=== PATIENT | male | born 1935 | race Caucasian/White ===

== ENCOUNTER 2016-09-10 13:11 | Observation (INO) | payer MEDICARE, BC ==
[~2016-09-10] VITALS: Ht 172.7 cm; Wt 96.4 kg
[2016-09-10 14:13] VITALS: BP 125/79; PULSE 76; RESP 18; O2SAT 95
[2016-09-10 14:18] LABS: HEMATOCRIT 53.3 % (39.0-51.0); MEAN CELL VOLUME 86.1 FL (80.0-100.0); MEAN CORPUSCULAR HEMOGLOBIN 28.4 PG (27.0-34.0); RED BLOOD COUNT 6.19 MIL/MM3 (4.50-5.90); WHITE BLOOD COUNT 6.3 TH/MM3 (4.0-11.0)
[2016-09-10 14:19] LABS: AUTOMATED NEUTROPHIL # 4.2 TH/MM3 (1.8-7.7); BASOPHIL # 0.1 TH/MM3 (0-0.2); EOSINOPHIL # 0.2 TH/MM3 (0-0.4); EOSINOPHIL % 3.6 % (0.0-4.0); LYMPH % 19.4 % (9.0-44.0); LYMPHOCYTE # 1.2 TH/MM3 (1.0-4.8); MEAN CORPUSCULAR HGB CONC 32.9 % (32.0-36.0); MONO % 9.5 % (0.0-8.0); NEUT % 66.5 % (16.0-70.0); PLATELET COUNT 98 TH/MM3 (150-450); RED CELL DISTRIBUTION WIDTH 16.9 % (11.6-17.2)
[2016-09-10 14:28] LABS: APTT (PATIENT) 25.6 SEC (24.3-30.1); INTERNATIONAL NORMALIZED RATIO 1.2 RATIO; PROTHROMBIN TIME - PATIENT 13.2 SEC (9.8-11.6)
[2016-09-10 14:30] LABS: BICARBONATE 33.4 MEQ/L (21.0-32.0); POTASSIUM 4.1 MEQ/L (3.5-5.1)
[2016-09-10] MEDS ORDERED: CHLORHEXIDINE GLUCONATE 2 % 1 PACK (2 CLOTHS) TOP SCH (14:30)
[2016-09-10] MEDS ORDERED: VANCOMYCIN 1000 MG/NS 250 ML IV SCH ×2 (14:30)
[2016-09-10] MEDS: NS 1000 ML IV SCH (14:30)
[2016-09-10] MEDS ORDERED: ceFAZolin 2 GM PREMIX 50 ML IV SCH (14:30)
[2016-09-10] MEDS ORDERED: POVIDONE IODINE 5% (ANTISEPSIS KIT) 4 APPLICATIONS EACH NARE SCH (14:30)
[2016-09-10] MEDS ORDERED: GLIP10TA6 PO (14:43)
[2016-09-10] MEDS ORDERED: LOVA40TA PO (14:43)
[2016-09-10] MEDS ORDERED: FURO1TAB62 PO (14:43)
[2016-09-10] MEDS ORDERED: LEVO75TA3 PO (14:43)
[2016-09-10] MEDS ORDERED: ASPI1TAB69 PO (14:43)
[2016-09-10] MEDS ORDERED: LISI2.5T3 PO (14:43)
[2016-09-10] MEDS ORDERED: CARV3.125 PO (14:43)
[2016-09-10] MEDS ORDERED: SITA50 PO (14:43)
[2016-09-10] MEDS ORDERED: INSULIN HUMAN REGULAR 1,000 UNITS/10 ML VIAL SQ PRN (14:45)
[2016-09-10] MEDS: SODIUM CHLORID 0.9% 500 ML IV SCH (14:45)
[2016-09-10] MEDS ORDERED: LORazepam 1 MG TAB SL SCH (14:45)
[2016-09-10] MEDS ORDERED: METOPROLOL TARTRATE 25 MG TAB PO PRN (14:45)
[2016-09-10 14:48] LABS: HEMO FLAGS AUTO DIFF
[2016-09-10 14:49] LABS: PLATELET ESTIMATE SMEAR LOW (NORMAL); PLATELET MORPHOLOGY ENLARGED (NORMAL); SCAN/DIFF AUTO DIFF CONFIRMED
[2016-09-10] MEDS ORDERED: BUME1TAB25 PO (15:23)
[2016-09-10] MEDS ORDERED: PROPOFOL 200 MG/20 ML AMP IV ONE (15:35)
[2016-09-10] MEDS ORDERED: LIDOCAINE HCL 2% 50 ML VIAL ONE (16:07)
[2016-09-10] MEDS ORDERED: VANCOMYCIN 500 MG VIAL ONE (16:07)
[2016-09-10] MEDS ORDERED: SODIUM CHLORIDE 0.9% FLUSH 5 ML FLUSH IVF PRN (18:00)
[2016-09-10] MEDS ORDERED: ATROPINE SULFATE 1 MG/ML VIAL IV PRN (18:00)
[2016-09-10] MEDS ORDERED: ACETAMINOPHEN/CODEINE 300 MG/30 MG TAB PO PRN ×2 (18:00)
[2016-09-10] MEDS ORDERED: LIDOCAINE HCL 1% 50 ML VIAL INFIL PRN (18:00)
[2016-09-10] MEDS ORDERED: TEMAZEPAM 15 MG CAP PO PRN (18:00)
[2016-09-10] MEDS ORDERED: LORazepam 2 MG/ML VIAL IV PRN (18:00)
[2016-09-10] MEDS ORDERED: ONDANSETRON HCL 4 MG/2 ML VIAL IV PRN ×2 (18:00)
[2016-09-10] MEDS ORDERED: METOCLOPRAMIDE HCL 10 MG/2 ML VIAL IV PRN (18:00)
[2016-09-10] MEDS ORDERED: SODIUM CHLOR 0.9% 250 ML INJ 250 ML IV PRN (18:00)
[2016-09-10] MEDS ORDERED: BACITRACIN OINT 0.9 GM PKT TOP ONE (18:00)
[2016-09-10] MEDS ORDERED: MIDAZOLAM HCL 2 MG/2 ML VIAL ONE (18:16)
--- NOTE | 2016-09-10 18:36 | RADRPT ---
EXAM DATE/TIME: 09/10/2016 18:06 [facility] COMPARISON: No previous studies available for comparison. INDICATIONS : Post pacemaker, pneumothorax. MEDICAL HISTORY : None. SURGICAL HISTORY : None. ENCOUNTER: Initial ACUITY: 1 day PAIN SCORE: Non-responsive. LOCATION: Left chest. FINDINGS: A single view of the chest demonstrates right lung density and pleural effusion. Cardiomegaly and pre vious CABG. Left-sided pacemaker/defibrillator with intact 3 intact leads. The cardiomediastinal con tours are unremarkable. Osseous structures are intact. CONCLUSION: Right lung density likely layering effusion and adjacent atelectasis. No pneumothorax on the left sta tus post pacemaker/defibrillator placement. Anshu Palma MD on September 10, 2016 at 18:31 Board Certified Radiologist. This report was verified electronically.
[2016-09-10 19:00] VITALS: BP 105/69; PULSE 69; RESP 20; TEMP 97.4; O2SAT 97
[2016-09-10 20:00] VITALS: PULSE 69
[2016-09-10 21:00] VITALS: PULSE 69
[2016-09-10] MEDS: ceFAZolin 2 GM PREMIX 50 ML IV SCH (21:45)
[2016-09-10] MEDS: SODIUM CHLORIDE 0.9% FLUSH 5 ML FLUSH IVF SCH (21:45)
[2016-09-10] MEDS: CARVEDILOL 3.125 MG TAB PO SCH (21:45)
[2016-09-10 22:00] VITALS: PULSE 69
[2016-09-10 23:00] VITALS: BP 108/59; PULSE 69; RESP 24; TEMP 97.6; O2SAT 96
[2016-09-11] VITALS (26 sets, daily range): BP systolic 98–121; BP diastolic 52–63; PULSE 69–150; RESP 20–36; TEMP 97.2–98.1; O2SAT 90–94
[2016-09-11] MEDS: ceFAZolin 2 GM PREMIX 50 ML IV SCH ×2 (04:31→13:36)
[2016-09-11] MEDS: LEVOTHYROXINE SODIUM 75 MCG TAB PO SCH (06:08)
[2016-09-11] MEDS: glipiZIDE 10 MG TAB PO SCH ×2 (06:37→16:00)
[2016-09-11 07:17] LABS: APTT (PATIENT) 28.6 SEC (24.3-30.1); INTERNATIONAL NORMALIZED RATIO 1.2 RATIO; PROTHROMBIN TIME - PATIENT 13.3 SEC (9.8-11.6)
[2016-09-11] MEDS: SODIUM CHLORID 0.9% 500 ML IV SCH (07:25)
[2016-09-11] MEDS: CARVEDILOL 3.125 MG TAB PO SCH ×2 (09:08→22:02)
[2016-09-11] MEDS: PRAVASTATIN SOD 40 MG TAB PO SCH (09:10)
[2016-09-11] MEDS: LISINOPRIL 5 MG TAB PO SCH (09:10)
[2016-09-11] MEDS: ASPIRIN EC 81 MG TABEC PO SCH (09:10)
[2016-09-11] MEDS: SODIUM CHLORIDE 0.9% FLUSH 5 ML FLUSH IVF SCH ×2 (13:37→22:03)
[2016-09-11] MEDS: BUMETANIDE 1 MG TAB PO SCH (13:37)
[2016-09-11] MEDS: NS 1000 ML IV SCH (14:30)
[2016-09-11] MEDS: LACTATED RINGER'S 1000 ML IV SCH (14:45)
--- NOTE | 2016-09-11 16:30 | RADRPT ---
EXAM DATE/TIME: 09/11/2016 16:16 [facility] COMPARISON: CHEST SINGLE AP, September 10, 2016, 18:06. INDICATIONS : Short of breath, decline in respiratory status. MEDICAL HISTORY : None. SURGICAL HISTORY : Pacemaker. ENCOUNTER: Initial ACUITY: 1 day PAIN SCORE: 0/10 LOCATION: Bilateral chest FINDINGS: PA and lateral views of the chest demonstrate elevation of right hemidiaphragm with right basilar den sity and right pleural effusion. Cardiomegaly with increased pulmonary vascularity. Left-sided pacema ker and previous CABG.. The cardiomediastinal contours are unremarkable. Osseous structures are int act. CONCLUSION: Right pleural effusion and right basilar density. Cardiomegaly with increased pulmonary vascularity. Anshu Palma MD on September 11, 2016 at 16:27 Board Certified Radiologist. This report was verified electronically.
--- NOTE | 2016-09-11 17:29 | HHI.PR ---
Subjective Remarks Feeling ok Objective Vital Signs Date Time Temp Pulse Resp B/P Pulse Ox O2 Delivery O2 Flow Rate FiO2 09/11/16 15:00 97.9 74 32 105/52 94 09/11/16 15:00 69 09/11/16 14:00 73 09/11/16 13:00 69 09/11/16 12:00 69 09/11/16 11:00 97.9 74 32 105/52 94 09/11/16 11:00 71 09/11/16 10:00 69 09/11/16 09:00 72 09/11/16 08:00 71 09/11/16 07:39 92 Nasal Cannula 4.00 09/11/16 07:00 74 09/11/16 07:00 97.2 74 36 111/52 94 09/11/16 06:00 74 09/11/16 05:00 69 09/11/16 04:00 69 09/11/16 03:00 69 09/11/16 03:00 97.7 76 22 103/56 91 09/11/16 02:00 69 09/11/16 01:00 69 09/11/16 00:00 69 09/10/16 23:00 97.6 69 24 108/59 96 09/10/16 23:00 69 09/10/16 22:00 69 09/10/16 21:00 69 09/10/16 20:00 69 09/10/16 19:00 69 09/10/16 19:00 97.4 69 20 105/69 97 I/O 09/10/16 09/10/16 09/10/16 09/11/16 09/11/16 09/11/16 07:00 15:00 23:00 07:00 15:00 23:00 Intake Total 240 ml Output Total 300 ml Balance -60 ml Intake Oral 240 ml Output Urine Total 300 ml Result Diagram: 09/10/16 1342 09/10/16 1342 Imaging Alert, fully oriented Lungs: decrease bilateral basal ventilation Heart: S1, S2 regular, no gallop Clean left infraclavicular area surgical wound Abdomen: soft, no mass Ext: no edema Last Impressions Chest X-Ray 09/11/16 0000 Signed Impressions: Service Date/Time: September 16:16 - CONCLUSION: Right pleural effusion and right basilar density. Cardiomegaly with increased pulmonary vascularity. Anshu Palma MD Current Medications Medications (Trade) Dose Ordered Sig/Vicente Route Start Time Stop Time Status Last Admin Sodium Chloride 1,000 ml @ 30 mls/hr Q24H IV 09/10/16 14:30 (Lr 1000 ml Inj) 1,000 ml @ 30 mls/hr Q24H IV 09/10/16 14:45 (Restoril) 15 mg HS PRN PO 09/10/16 18:00 (Zofran Inj) 4 mg Q4H PRN IV 09/10/16 18:00 (Tylenol-Codeine #3) 1 tab Q4H PRN PO 09/10/16 18:00 (Tylenol-Codeine #3) 2 tab Q4H PRN PO 09/10/16 18:00 (NS Flush) 2 ml BID IVF 09/10/16 21:00 09/11/16 13:37 (NS Flush) 2 ml UNSCH PRN IVF 09/10/16 18:00 (Ativan Inj) 0.5 mg UNSCH PRN IV 09/10/16 18:00 09/11/16 17:59 Atropine Sulfate 0.5 mg 0.5 mg UNSCH PRN IV 09/10/16 18:00 (NS 250 ml Inj) 250 ml @ 500 mls/hr ONCE PRN IV 09/10/16 18:00 09/11/16 17:59 (Reglan Inj) 10 mg Q4H PRN IV 09/10/16 18:00 (Zofran Inj) 4 mg Q4H PRN IV 09/10/16 18:00 (Xylocaine 1% Inj (50 ml)) 10 ml UNSCH PRN INFIL 09/10/16 18:00 09/11/16 17:59 (Ecotrin Ec) 81 mg DAILY PO 09/11/16 09:00 09/11/16 09:10 (Bumetanide) 0.5 mg DAILY PO 09/11/16 09:00 09/11/16 13:37 (Coreg) 3.125 mg BID PO 09/10/16 21:00 09/11/16 09:08 (Glucotrol) 10 mg BIDAC PO 09/11/16 07:00 09/11/16 06:37 (Synthroid) 75 mcg DAILY@06 PO 09/11/16 06:00 09/11/16 06:08 (Prinivil) 2.5 mg DAILY PO 09/11/16 09:00 09/11/16 09:10 (Pravachol) 40 mg DAILY PO 09/11/16 09:00 09/11/16 09:10 (Januvia) 50 mg DAILY PO 09/11/16 09:00 09/11/16 13:36 Assessment and Plan Problem List: (1) SOB (shortness of breath) Status: Acute Plan: Chronic SOB. SaO2 today 90. Pleural effusion. Pulmonary consulted Hospitalist consulted for medical management (2) CHF (congestive heart failure) Status: Acute Plan: CHF III. On optimal medical management. BIV pacing Continue with current management (3) ICD (implantable cardioverter-defibrillator), biventricular, in situ Status: Acute Plan: Clean surgical wound Device well functioning Rashel Patiño MD Sep 11, 2016 17:29
--- NOTE | 2016-09-11 20:33 | MA ---
cc: DESIREE GRIFFIN M.D. DATE: 09/11/2016 PROCEDURE Electrophysiology study, CS cannulation. INDICATION Mr. Chino is a 80-year-old gentleman with congestive heart failure class III, cardiomyopathy, coronary artery disease, ejection fraction around 15%, referred for electrophysiology study and biventricular pacer defibrillator insertion. The risks, the nature and the benefit of the procedure are clearly stated to him. The risks include pneumothorax, cardiac perforation, stroke, need for open heart surgery and even . The patient understood and agreed to proceed. PROCEDURE After written informed consent was obtained, the patient was brought to the EP Lab where he was prepped and draped in the usual sterile fashion. Conscious sedation was initiated and maintained throughout the procedure by anesthesiologist. Once sedation verified, the right inguinal area was anesthetized with 2% Xylocaine. Using modified Seldinger technique, the right femoral vein was cannulated on four occasions and four guidewires were advanced; over the wire three 5 and a 6-Czech Hemaquet were advanced. Then under fluoroscopic guidance through the 5 and 6-Rrench Hemaquet, four 5-Czech Luisa curved quadripolar electrophysiology catheters were advanced and positioned along the His, upper right atrium, coronary sinus and right ventricular apex. Basic interval was measured, HV was prolonged. Then atrial pacing protocol was performed. Wenckebach of the node was very high around 800 milliseconds. During ventricular pacing protocol there was VA conduction it was concentric. Ventricular pacing protocol consisted of incremental ventricular pacing as well as program stimulation with 110 cycle length and up to three extrastimuli delivered. During ventricular pacing protocol, patient's blood pressure dropped systolic in the 70s. I decided not to continue further with the ventricular pacing protocol. Procedure was complete. All catheters were removed. The patient going to be kept on the table. A biventricular pacer defibrillator will be implanted for sudden prevention and resynchronization therapy. Blood loss was minimal. 1. Electrocardiogram: At baseline the patient was in sinus, postprocedure the patient was in sinus rhythm. 2. Basic interval: Base cycle length was around 890 milliseconds, and the patient was also in 2:1 intermittent AV block. Postprocedure electrocardiogram was unchanged. 3. Atrial pacing protocol: Wenckebach of the node was around 800 milliseconds. 4. Ventricular pacing protocol: There was VA conduction. No tachyarrhythmia was induced. Ventricular pacing protocol was discontinued because of blood pressure issue. CONCLUSION 1. 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 2. Intermittent AV block. 3. Negative electrophysiology study for ventricular tachyarrhythmia. COMMENT AND RECOMMENDATION The patient going to be kept on the table, a biventricular pacer defibrillator will be implanted for sudden prevention and resynchronization therapy. MD JERI Mckeon/RACHANA /5:41 PM /8:17 PM
[2016-09-11 23:25] LABS: MAGNESIUM 1.9 MG/DL (1.5-2.5)
[2016-09-11] MEDS ORDERED: MAGNESIUM SULFATE 1 GM PREMIX 100 ML IV ONE (23:30)
[2016-09-12] VITALS (29 sets, daily range): BP systolic 91–124; BP diastolic 52–75; PULSE 69–81; RESP 20–26; TEMP 98–98.3; O2SAT 86–97
[2016-09-12 00:33] LABS: BICARBONATE 31.3 MEQ/L (21.0-32.0); POTASSIUM 4.3 MEQ/L (3.5-5.1)
[2016-09-12] MEDS: LEVOTHYROXINE SODIUM 75 MCG TAB PO SCH (06:42)
[2016-09-12] MEDS: glipiZIDE 10 MG TAB PO SCH ×2 (06:42→17:49)
--- NOTE | 2016-09-12 06:53 | EKG ---
Date Performed: 09/11/2016 Time Performed: 04:45:12 PTAGE: 80 years EKG: CONSIDER ACUTE ST ELEVATION LA Sinus rhythm Right bundle branch block Possible anterior infarct - age undetermined Lateral ST elevation, CONSIDE R ACUTE INFARCT Inferior ST-T changes suggest myocardial infarct Low QRS voltages in precordial leads Abnormal ECG PREVIOUS TRACING : 09/10/2016 22.13 Compared to prior tracing no significant change DOCTOR: Marco A Brown Interpretating Date/Time 09/12/2016 06:50:29
--- NOTE | 2016-09-12 06:58 | EKG ---
Date Performed: 09/10/2016 Time Performed: 22:13:10 PTAGE: 80 years EKG: Demand atrial pacing Right axis deviation Right bundle branch block Low QRS voltages in pre cordial leads Abnormal ECG PREVIOUS TRACING : 09/10/2016 14.01 DOCTOR: Marco A Brown Interpretating Date/Time 09/12/2016 06:57:39
--- NOTE | 2016-09-12 07:06 | EKG ---
Date Performed: 09/10/2016 Time Performed: 14:01:54 PTAGE: 80 years EKG: Sinus rhythm with 1st degree A-V block Left axis deviation RBBB with left anterior fascicular block Inferior infa rct - age undetermined Possible anterior infarct - age undetermined Abnormal ECG NO PREVIOUS TRACING DOCTOR: Marco A Brown Interpretating Date/Time 09/12/2016 07:03:40
[2016-09-12] MEDS: SODIUM CHLORIDE 0.9% FLUSH 5 ML FLUSH IVF SCH ×2 (09:42→21:38)
[2016-09-12] MEDS: ASPIRIN EC 81 MG TABEC PO SCH (09:43)
[2016-09-12] MEDS: PRAVASTATIN SOD 40 MG TAB PO SCH (09:43)
[2016-09-12] MEDS: BUMETANIDE 1 MG TAB PO SCH (09:43)
[2016-09-12] MEDS: LISINOPRIL 5 MG TAB PO SCH (09:44)
[2016-09-12] MEDS: CARVEDILOL 3.125 MG TAB PO SCH ×2 (09:45→21:38)
--- NOTE | 2016-09-12 10:42 | HHI.PR ---
Subjective Remarks 80 YOWM with CHF,CMP,S/p defib placement Has SOB CXR right pl effusion No CP Objective Vital Signs Vital Signs Date Time Temp Pulse Resp B/P Pulse Ox O2 Delivery O2 Flow Rate FiO2 09/12/16 07:59 98.3 70 24 100/55 96 09/12/16 06:00 74 09/12/16 05:00 76 09/12/16 04:00 76 09/12/16 03:00 98.2 71 26 103/57 90 09/12/16 03:00 77 09/12/16 02:00 77 09/12/16 01:00 78 09/12/16 00:00 76 09/11/16 23:00 98.1 83 20 121/63 90 09/11/16 23:00 85 09/11/16 22:00 81 09/11/16 21:00 83 09/11/16 20:00 80 09/11/16 19:48 150 09/11/16 19:00 98.1 79 30 98/54 94 09/11/16 19:00 80 09/11/16 18:57 3.00 09/11/16 18:00 76 09/11/16 17:00 78 09/11/16 16:00 69 09/11/16 15:00 97.9 74 32 105/52 94 09/11/16 15:00 69 09/11/16 14:00 73 09/11/16 13:00 69 09/11/16 12:00 69 09/11/16 11:00 97.9 74 32 105/52 94 09/11/16 11:00 71 I/O 09/11/16 09/11/16 09/11/16 09/12/16 09/12/16 09/12/16 07:00 15:00 23:00 07:00 15:00 23:00 Intake Total 240 ml 555 ml 480 ml Output Total 300 ml 375 ml 600 ml Balance -60 ml 180 ml -120 ml Intake Oral 240 ml 220 ml 480 ml IV Total 335 ml Output Urine Total 300 ml 375 ml 600 ml Result Diagram: 09/10/16 9572 09/11/16 6731 Objective Remarks GENERAL: WBWN WM with SOB SKIN: Warm and dry. HEAD: Normocephalic. EYES: No scleral icterus. No injection or drainage. NECK: Supple, trachea midline. No JVD or lymphadenopathy. CARDIOVASCULAR: Regular rate and rhythm without murmurs, gallops, or rubs. RESPIRATORY: Breath sounds equal bilaterally. No accessory muscle use. Decreased BS right GASTROINTESTINAL: Abdomen soft, non-tender, nondistended. MUSCULOSKELETAL: No cyanosis, or edema. BACK: Nontender without obvious deformity. No CVA tenderness. A/P Assessment and Plan Dysnoea Right pl effusion CHF CMP S/P Defib placement PLAN: DW Pt Will need US guided Right TC Diurease Supplement 02 Monitor BS Consult IR for TC Rich Sy MD Sep 12, 2016 10:42
--- NOTE | 2016-09-12 12:07 | PD.CARD.PN ---
Subjective Subjective Remarks Feels ok, up in chair. Objective Medications Current Medications Medications (Trade) Dose Ordered Sig/Vicente Route Start Time Stop Time Status Last Admin Sodium Chloride 1,000 ml @ 30 mls/hr Q24H IV 09/10/16 14:30 (Lr 1000 ml Inj) 1,000 ml @ 30 mls/hr Q24H IV 09/10/16 14:45 (Restoril) 15 mg HS PRN PO 09/10/16 18:00 (Zofran Inj) 4 mg Q4H PRN IV 09/10/16 18:00 (Tylenol-Codeine #3) 1 tab Q4H PRN PO 09/10/16 18:00 (Tylenol-Codeine #3) 2 tab Q4H PRN PO 09/10/16 18:00 (NS Flush) 2 ml BID IVF 09/10/16 21:00 09/12/16 09:42 (NS Flush) 2 ml UNSCH PRN IVF 09/10/16 18:00 (Atropine Inj) 0.5 mg UNSCH PRN IV 09/10/16 18:00 (Reglan Inj) 10 mg Q4H PRN IV 09/10/16 18:00 (Zofran Inj) 4 mg Q4H PRN IV 09/10/16 18:00 (Ecotrin Ec) 81 mg DAILY PO 09/11/16 09:00 09/12/16 09:43 (Bumetanide) 0.5 mg DAILY PO 09/11/16 09:00 09/12/16 09:43 (Coreg) 3.125 mg BID PO 09/10/16 21:00 09/12/16 09:45 (Glucotrol) 10 mg BIDAC PO 09/11/16 07:00 09/12/16 06:42 (Synthroid) 75 mcg DAILY@06 PO 09/11/16 06:00 09/12/16 06:42 (Prinivil) 2.5 mg DAILY PO 09/11/16 09:00 09/12/16 09:44 (Pravachol) 40 mg DAILY PO 09/11/16 09:00 09/12/16 09:43 (Januvia) 50 mg DAILY PO 09/11/16 09:00 09/12/16 11:31 Vital Signs / I&O Vital Signs Date Time Temp Pulse Resp B/P Pulse Ox O2 Delivery O2 Flow Rate FiO2 09/12/16 11:57 69 09/12/16 11:00 75 09/12/16 10:00 72 09/12/16 09:00 77 09/12/16 08:00 70 09/12/16 07:59 98.3 70 24 100/55 96 09/12/16 06:00 74 09/12/16 05:00 76 09/12/16 04:00 76 09/12/16 03:00 98.2 71 26 103/57 90 09/12/16 03:00 77 09/12/16 02:00 77 09/12/16 01:00 78 09/12/16 00:00 76 09/11/16 23:00 98.1 83 20 121/63 90 09/11/16 23:00 85 09/11/16 22:00 81 09/11/16 21:00 83 09/11/16 20:00 80 09/11/16 19:48 150 09/11/16 19:00 98.1 79 30 98/54 94 09/11/16 19:00 80 09/11/16 18:57 3.00 09/11/16 18:00 76 09/11/16 17:00 78 09/11/16 16:00 69 09/11/16 15:00 97.9 74 32 105/52 94 09/11/16 15:00 69 09/11/16 14:00 73 09/11/16 13:00 69 09/11/16 12:00 69 I/O 09/11/16 09/11/16 09/11/16 09/12/16 09/12/16 09/12/16 07:00 15:00 23:00 07:00 15:00 23:00 Intake Total 240 ml 555 ml 480 ml Output Total 300 ml 375 ml 600 ml Balance -60 ml 180 ml -120 ml Intake Oral 240 ml 220 ml 480 ml IV Total 335 ml Output Urine Total 300 ml 375 ml 600 ml Physical Exam GENERAL: Well-nourished, obese, well-developed patient. SKIN: Warm and dry. HEAD: Normocephalic. EYES: No scleral icterus. No injection or drainage. NECK: Supple, trachea midline. No JVD or lymphadenopathy. CARDIOVASCULAR: Regular rate and rhythm without murmurs, gallops, or rubs. RESPIRATORY: Breath sounds equal bilaterally. No accessory muscle use. GASTROINTESTINAL: Abdomen soft, non-tender, nondistended. EXTREMITIES: No cyanosis, or edema. NEUROLOGICAL: Awake, alert, and oriented x 3. Non-focal. Laboratory Laboratory Tests Test 09/11/16 22:37 Phosphorus Level 3.4 MG/DL Magnesium Level 1.9 MG/DL B-Type Natriuretic Peptide 889 PG/ML Sodium Level 141 MEQ/L Potassium Level 4.3 MEQ/L Chloride Level 103 MEQ/L Carbon Dioxide Level 31.3 MEQ/L Anion Gap 7 MEQ/L Blood Urea Nitrogen 32 MG/DL Creatinine 1.74 MG/DL Estimat Glomerular Filtration 38 ML/MIN Rate Random Glucose 81 MG/DL Calcium Level 8.6 MG/DL Imaging Last 48 hours Impressions Chest X-Ray 09/11/16 0000 Signed Impressions: Service Date/Time: September 16:16 - CONCLUSION: Right pleural effusion and right basilar density. Cardiomegaly with increased pulmonary vascularity. Anshu Palma MD Assessment and Plan Problem List: (1) ICD (implantable cardioverter-defibrillator), biventricular, in situ Assessment and Plan: Device function appropriate, CXR w/no ptx, incision clean. (2) SOB (shortness of breath) Assessment and Plan: SOB with conversation, up in chair on 3L NC. Pulm consulted for pleural effusion, which will require thoracentesis per Dr. Sy' s note. IR consult pending. Can be DC'd home when cleared by pulmonology. (3) CHF (congestive heart failure) Assessment and Plan: Class III, EF 15%, on lisinopril and carvedilol. (4) Pleural effusion Assessment and Plan: Dr. Sy consulted and following, Pending thoracentesis by IR. Assessment and Plan Assessment and plan d/w pt., RN, Dr. Patiño. Lauren Salamanca Sep 12, 2016 12:07
[2016-09-12] MEDS: NS 1000 ML IV SCH (14:30)
--- NOTE | 2016-09-12 14:44 | EKG ---
Date Performed: 09/11/2016 Time Performed: 21:37:08 PTAGE: 80 years EKG: NORMAL Sinus rhythm RIGHT AXIS DEVIATION CONSIDER AND EXCLUDE LIMB LEAD REVERSAL INCOMPLETE RIGHT BUNDLE BRANCH BLOCK PO SSIBLE LATERAL INFARCT OF INDETERMINATE AGE INFERIOR ST SEGMENT DEPRESSION CONSISTENT WITH MYOCARDIAL ISCHEMIA Compared to the previous tracing, there has been no significant serial change Abnormal ECG PREVIOUS TRACING : 09/11/2016 04.45 DOCTOR: Shira Patel Interpretating Date/Time 09/12/2016 14:44:13
[2016-09-12] MEDS: LACTATED RINGER'S 1000 ML IV SCH (14:45)
--- NOTE | 2016-09-12 14:57 | RADRPT ---
EXAM DATE/TIME: 09/12/2016 14:32 [facility] COMPARISON: No previous studies available for comparison. INDICATIONS: Post right thoracentesis MEDICAL HISTORY: None. SURGICAL HISTORY: Pacemaker. ENCOUNTER: Initial ACUITY: 1 day PAIN SCORE: 0/10 LOCATION: Right chest FINDINGS: Defibrillator is implanted in the left chest. There is no evidence for a pneumothorax following thor acentesis on the right. Minimal bibasilar parenchymal changes present. CONCLUSION: 1. Negative for pneumothorax following thoracentesis. 2. Minimal bibasilar parenchymal changes. Arvind Mclaughlin MD FACR on September 12, 2016 at 14:52 Board Certified Radiologist. This report was verified electronically.
--- NOTE | 2016-09-12 16:06 | RADRPT ---
EXAM DATE/TIME: 09/12/2016 14:14 [facility] COMPARISON: No previous studies available for comparison. INDICATIONS : Right pleural effusion. MEDICAL HISTORY : Hypertension. Congestive heart failure. Diabetes. Thyroid disease. Respiratory disorder. Cardiomyopa thy. Right lung pleural effusion. SURGICAL HISTORY : Pacemaker. ENCOUNTER: Initial ACUITY: 1 day PAIN SCORE: 0/10 LOCATION: Right chest FLUID: Total volume of 900 cc of clear, yellow fluid was removed. Fluid was sent to lab for ordered studies. TECHNIQUE: 1. Ultrasound guidance for thoracentesis. 2. Thoracentesis. The risks, benefits, and alternatives to ultrasound guided thoracentesis were explained to the patien t in lay simple terms, including the risk of bleeding and infection. Written and verbal informed con sent was obtained. Appropriate area for thoracentesis was marked under ultrasound guidance with the patient in the uprig ht position. Overlying skin was prepped and draped in the usual sterile fashion and with local anest hetic, a dermatotomy was made with an 11 blade scalpel. A 6 Uzbek thoracentesis catheter was placed in the pleural space and fluid was removed. Catheter was then removed and a sterile dressing applie d. There were no immediate complications. The patient tolerated the procedure well and the left the ultrasound suite in stable condition. Chest radiograph is to be obtained. CONCLUSION: Uncomplicated ultrasound guided RIGHT thoracentesis. Arvind Mclaughlin MD FACR on September 12, 2016 at 16:03 Board Certified Radiologist. This report was verified electronically.
[2016-09-12 17:07] LABS: TOTAL PROTEIN,PLEURAL FLUID 3.1 GM/DL
--- NOTE | 2016-09-12 17:38 | PD.CONS ---
HPI Service [facility] Hospitalists Consult Requested By Dr. Patiño Reason for Consult Medical management Primary Care Physician Anselmo Zuluaga M.D. Diagnoses: History of Present Illness This a pleasant 80-year-old male with significant past medical history of cardiomyopathy, CAD, CABG, diabetes, hypertension, hyperlipidemia. Patient was admitted per Dr. Patiño on 09/10/2016 for EP study and placement of biventricular defibrillator. Patient has history of cardiomyopathy with CHF class III EF around 15%. Patient underwent placement of device, he tolerated well. After procedure, patient was not a chore of breath, required 4 L of oxygen. Chest x- ray was done showing right pleural effusion. Patient underwent right thoracentesis and 1 L was removed. Patient indicates he is breathing better, no chest pain. Oxygen has been titrated down to 1 L, sats are 96%. Denies any chest pain, no palpitations. Hospitalist services are requested for medical management. (Torrie Hines) Review of Systems Constitutional: COMPLAINS OF: Fatigue, Weight loss, Change in appetite, DENIES : Diaphoretic episodes, Fever, Weight gain, Chills, Dizziness, Night Sweats Endocrine: DENIES: Heat/cold intolerance, Polydipsia, Polyuria, Polyphagia Eyes: DENIES: Blurred vision, Diplopia, Eye inflammation, Eye pain, Vision loss , Photosensitivity, Double Vision Ears, nose, mouth, throat: DENIES: Tinnitus, Hearing loss, Vertigo, Nasal discharge, Oral lesions, Throat pain, Hoarseness, Ear Pain, Running Nose, Epistaxis, Sinus Pain, Toothache, Odynophagia Respiratory: DENIES: Apneas, Cough, Snoring, Wheezing, Hemoptysis, Sputum production, Shortness of breath Cardiovascular: COMPLAINS OF: Dyspnea on Exertion, DENIES: Chest pain, Palpitations, Syncope, PND, Lower Extremity Edema, Orthopnea, Claudication Gastrointestinal: DENIES: Abdominal pain, Black stools, Bloody stools, Constipation, Diarrhea, Nausea, Vomiting, Difficulty Swallowing, Anorexia Genitourinary: DENIES: Sexual dysfunction, Urinary frequency, Urinary incontinence, Urgency, Hematuria, Dysuria, Nocturia, Penile Discharge, Testicular Pain, Testicular Swelling Musculoskeletal: DENIES: Joint pain, Muscle aches, Stiffness, Joint Swelling, Back pain, Neck pain Integumentary: DENIES: Abnormal pigmentation, Nail changes, Pruritus, Rash Hematologic/lymphatic: DENIES: Bruising, Lymphadenopathy Immunologic/allergic: DENIES: Eczema, Urticaria Neurologic: DENIES: Abnormal gait, Headache, Localized weakness, Paresthesias, Seizures, Speech Problems, Tremor, Poor Balance Psychiatric: DENIES: Anxiety, Confusion, Mood changes, Depression, Hallucinations, Agitation, Suicidal Ideation, Homicidal Ideation, Delusions ( Torrie Hines) Past Family Social History Past Medical History Peripheral vascular disease Diabetic ulcers Type 2 diabetes CAD Prior myocardial infarction Cardiomyopathy EF of 50% CHF Hypertension Hyperlipidemia Hypothyroid Past Surgical History Right foot second toe amputation CABG 5 Status post biventricular AICD placement 09/11/2016 Status post right thoracentesis 1 L removed Reported Medications Reported Meds & Active Scripts Active Reported Bumex (Bumetanide) 0.5 Mg Tab 0.5 Mg PO DAILY Lovastatin 40 Mg Tab 40 Mg PO DAILY Lisinopril 2.5 Mg Tab 2.5 Mg PO DAILY Levothyroxine (Levothyroxine Sodium) 75 Mcg Tab 75 Mcg PO DAILY Januvia (Sitagliptin Phosphate) 50 Mg Tab 50 Mg PO DAILY Glipizide 10 Mg Tab 10 Mg PO BIDAC Take 30 minutes before a meal Coreg (Carvedilol) 3.125 Mg Tab 3.125 Mg PO BID Aspirin 81 Mg Tabdr 81 Mg PO DAILY (Torrie Hines) Allergies: Coded Allergies: Cipro (Verified Allergy, Severe, 09/10/16) Active Ordered Medications Inpatient Medications Acetaminophen/ Codeine Phosphate (Tylenol-Codeine #3) 2 tab Q4H PRN PO PAIN SCALE 6 TO 10; Start 09/10/16 at 18:00 Aspirin (Ecotrin Ec) 81 mg DAILY PO Last administered on 09/12/16 09:43; Start 09/11/16 at 09:00 Atropine Sulfate 0.5 mg 0.5 mg UNSCH PRN IV VAGAL REPONSE; Start 09/10/16 at 18: 00 Bacitracin (Bacitracin Oint Packet) 0.9 gm ONCE ONCE TOP ; Start 09/10/16 at 18: 00; Stop 09/10/16 at 18:07; Status DC Bumetanide (Bumetanide) 0.5 mg DAILY PO Last administered on 09/12/16 09:43; Start 09/11/16 at 09:00 Carvedilol (Coreg) 3.125 mg BID PO Last administered on 09/12/16 09:45; Start 09/10/16 at 21:00 Cefazolin Sodium/ Dextrose (Ancef 2 Gm Premix) 50 ml @ 100 mls/hr Q8H IV Last administered on 09/11/16 13:36; Start 09/10/16 at 20:00; Stop 09/11/16 at 12:29; Status DC Cephalexin Monohydrate (Keflex) 500 mg Q8HR PO ; Start 09/12/16 at 14:00; Stop at 14:00 Chlorhexidine Gluconate (Chlorhexidine 2% Cloth) 3 pack [employer]FORMAT[employer] OFFICER TOP ; Start 09/10/16 at 14:30; Stop 09/13/16 at 14:29 Glipizide (Glucotrol) 10 mg BIDAC PO Last administered on 09/12/16 06:42; Start 09/11/16 at 07:00 Insulin Human Regular (NovoLIN R INJ) See Protocol Table ... UNSCH X1 PRN SQ SEE PROTOCOL; Start 09/10/16 at 14:45; Stop 09/11/16 at 14:44; Status DC IV Flush (NS Flush) 2 ml UNSCH PRN IVF FLUSH AFTER USING IV ACCESS; Start at 18:00 Lactated Ringer's 1,000 ml @ 30 mls/hr Q24H IV ; Start 09/10/16 at 14:45 Levothyroxine Sodium (Synthroid) 75 mcg DAILY@06 PO Last administered on 06:42; Start 09/11/16 at 06:00 Lidocaine HCl (Xylocaine 1% Inj (50 ml)) 10 ml UNSCH PRN INFIL SHEATH REMOVAL; Start 09/10/16 at 18:00; Stop 09/11/16 at 17:59; Status DC Lisinopril (Prinivil) 2.5 mg DAILY PO Last administered on 09/12/16 09:44; Start 09/11/16 at 09:00 Lorazepam (Ativan Inj) 0.5 mg UNSCH PRN IV ANXIETY; Start 09/10/16 at 18:00; Stop 09/11/16 at 17:59; Status DC Lorazepam 1 mg 1 mg [employer] OFFICER SL ; Start 09/10/16 at 14:45; Stop 09/13/16 at 14:44 Magnesium Sulfate/ Dextrose (Magnesium Sulfate 1 Gm Premix) 100 ml @ 100 mls/ hr ONCE ONCE IV Last administered on 09/12/16 00:23; Start 09/11/16 at 23:30; Stop 09/12/16 at 00:29; Status DC Metoclopramide HCl (Reglan Inj) 10 mg Q4H PRN IV NAUSEA; Start 09/10/16 at 18:00 Metoprolol Tartrate 25 mg 25 mg UNSCH X1 PRN PO SEE LABEL COMMENTS; Start at 14:45; Stop 09/11/16 at 14:44; Status DC Ondansetron HCl (Zofran Inj) 4 mg Q4H PRN IV NAUSEA; Start 09/10/16 at 18:00 Povidone Iodine (Betadine 5% Antisepsis Kit) 2 applic [employer] OFFICER EACH NARE ; Start 09/10/16 at 14:30; Stop 09/13/16 at 14:29 Pravastatin Sodium (Pravachol) 40 mg DAILY PO Last administered on 09/12/16 09: 43; Start 09/11/16 at 09:00 Sitagliptin Phosphate 50 mg 50 mg DAILY PO Last administered on 09/12/16 11:31 ; Start 09/11/16 at 09:00 Sodium Chloride (NS 250 ml Inj) 250 ml @ 500 mls/hr ONCE PRN IV VAGAL REPONSE ; Start 09/10/16 at 18:00; Stop 09/11/16 at 17:59; Status DC Sodium Chloride (NS 500 ml Inj) 500 ml @ 30 mls/hr [id number] IV ; Start 09/10/16 at 14:45; Stop 09/11/16 at 14:44; Status DC Temazepam (Restoril) 15 mg HS PRN PO SLEEP; Start 09/10/16 at 18:00 Vancomycin HCl/ Sodium Chloride (Vancomycin Inj/ NS 250 ml Inj) 250 ml @ 250 mls/hr [employer] OFFICER IV ; Start 09/10/16 at 14:30; Stop 09/13/16 at 14:29 Family History Both parents are , positive for history of coronary artery disease Social History Patient lives with significant other, quit smoking approximately 30 years ago, no alcohol abuse, no substance abuse. (Torrie Hines) Physical Exam Vital Signs Vital Signs Date Time Temp Pulse Resp B/P Pulse Ox O2 Delivery O2 Flow Rate FiO2 09/12/16 14:19 98.1 78 20 124/58 09/12/16 12:28 98.1 70 24 96/63 96 09/12/16 11:57 69 09/12/16 11:00 75 09/12/16 10:00 72 09/12/16 09:00 77 09/12/16 08:00 70 09/12/16 07:59 98.3 70 24 100/55 96 09/12/16 06:00 74 09/12/16 05:00 76 09/12/16 04:00 76 09/12/16 03:00 98.2 71 26 103/57 90 09/12/16 03:00 77 09/12/16 02:00 77 09/12/16 01:00 78 09/12/16 00:00 76 09/11/16 23:00 98.1 83 20 121/63 90 09/11/16 23:00 85 09/11/16 22:00 81 09/11/16 21:00 83 09/11/16 20:00 80 09/11/16 19:48 150 09/11/16 19:00 98.1 79 30 98/54 94 09/11/16 19:00 80 09/11/16 18:57 3.00 09/11/16 18:00 76 Physical Exam GENERAL: This is a well-nourished, well-developed patient, in no apparent distress. SKIN: No rashes, ecchymoses or lesions. Cool and dry. HEAD: Atraumatic. Normocephalic. No temporal or scalp tenderness. EYES: Pupils equal round and reactive. Extraocular motions intact. No scleral icterus. No injection or drainage. ENT: Nose without bleeding, purulent drainage or septal hematoma. Throat without erythema, tonsillar hypertrophy or exudate. Uvula midline. Airway patent. NECK: Trachea midline. No JVD or lymphadenopathy. Supple, nontender, no meningeal signs. CARDIOVASCULAR: Regular rate and rhythm without murmurs, gallops, or rubs. RESPIRATORY: Clear to auscultation. Breath sounds equal bilaterally. No wheezes , rales, or rhonchi. GASTROINTESTINAL: Abdomen soft, non-tender, nondistended. No hepato-splenomegaly , or palpable masses. No guarding. MUSCULOSKELETAL: Extremities without clubbing, cyanosis, or edema. No joint tenderness, effusion, or edema noted. No calf tenderness. Negative Homans sign bilaterally. NEUROLOGICAL: Awake and alert. Cranial nerves II through XII intact. Motor and sensory grossly within normal limits. Five out of 5 muscle strength in all muscle groups. Normal speech. Laboratory Laboratory Tests Test 09/11/16 09/12/16 22:37 14:40 Phosphorus Level 3.4 Magnesium Level 1.9 B-Type Natriuretic Peptide 889 Sodium Level 141 Potassium Level 4.3 Chloride Level 103 Carbon Dioxide Level 31.3 Anion Gap 7 Blood Urea Nitrogen 32 Creatinine 1.74 Estimat Glomerular Filtration 38 Rate Random Glucose 81 Calcium Level 8.6 Pleural Fluid Total Protein 3.1 Pleural Fluid LDH 91 Pleural Fluid Glucose 92 Date/Time Procedure Status Source Growth 09/12/16 14:40 Gram Stain Received Fluid Pleural Fluid Pending 09/12/16 14:40 Body Fluid Culture Received Fluid Pleural Fluid Pending (Torrie Hines) Result Diagram: 09/10/16 1342 09/11/16 2237 Imaging Last Impressions Thoracentesis Ultrasound 09/12/16 0000 Signed Impressions: Service Date/Time: Monday, September 12, 2016 14:14 - CONCLUSION: Uncomplicated ultrasound guided RIGHT thoracentesis. Arvind Mclaughlin MD FACR Chest X-Ray 09/12/16 0000 Signed Impressions: Service Date/Time: Monday, September 12, 2016 14:32 - CONCLUSION: 1. Negative for pneumothorax following thoracentesis. 2. Minimal bibasilar parenchymal changes. Arvind Mclaughlin MD FACR (Torrie Hines) A/P Diagnosis: (1) SOB (shortness of breath) (2) CHF (congestive heart failure) (3) ICD (implantable cardioverter-defibrillator), biventricular, in situ (4) Pleural effusion (5) CAD (coronary artery disease) (6) Hyperlipidemia (7) Renal insufficiency (8) Hypertension (9) Diabetes 1.5, managed as type 2 Assessment and Plan Thank you for this consultation, we will assist with medical management 80-year-old male with history of CAD, cardiomyopathy, EF 15%, status post biventricular AICD. Complaining of increasing shortness of breath, found with right pleural effusion -Status post right thoracentesis, 1 L removed Wean oxygen down to room air, keep sats greater than 92 -Pulmonology following patient Status post biventricular AICD for cardiomyopathy, EF 15% Monitor surgical site Continue on postoperative antibiotics Continue postop care Renal insufficiency-unclear what patient's baseline is Monitor BMP Type 2 diabetes Will order Accu-Cheks before meals and at bedtime with insulin therapy CAD, history of CABG Continue home medications Hypertension, stable Continue home medication Hyperlipidemia, stable Continue home medication Plan of care has been discussed with the patient, attending and registered nurse. Further management of the patient will be dependent on the hospital course Patient appears stable, possible discharge for tomorrow This patient was seen by myself and Dr. Donaldson, this consultation is written on his behalf (Torrie Hines) Assessment and Plan seen, examined by myself, Dr Donaldson, today 09/12/16 Agree with the above Discussed with mid level provider The exam, history, and the medical decision-making described in the above note were completed with the assistance of the mid-level provider. I reviewed the findings presented. I attest that I had a [id number] encounter with the patient on the same day, and personally performed and documented my assessment and findings in the medical record. (Josselin Donaldson MD) Problem Qualifiers (1) CHF (congestive heart failure): Qualified Code: I50.23 - Acute on chronic systolic congestive heart failure (2) CAD (coronary artery disease): Qualified Code: I25.10 - Coronary artery disease involving grindstone coronary artery of grindstone heart without angina pectoris (3) Hyperlipidemia: Qualified Code: E78.5 - Hyperlipidemia, unspecified hyperlipidemia type (4) Hypertension: Qualified Code: I10 - Essential hypertension Torrie Hines Sep 12, 2016 17:37 Josselin Donaldson MD Sep 12, 2016 18:15
[2016-09-12] MEDS ORDERED: GLUCAGON 1 MG/ML VIAL OTHER PRN (17:45)
[2016-09-12] MEDS ORDERED: DEXTROSE 50% IN WATER 50 ML VIAL(D50) IV PUSH PRN (17:45)
[2016-09-12] MEDS: CEPHALEXIN MONOHYDRATE 500 MG CAP PO SCH ×2 (17:49→21:38)
--- NOTE | 2016-09-12 19:35 | RADRPT ---
EXAM DATE/TIME: 09/12/2016 18:30 [place] COMPARISON: CHEST EXPIRATION ONLY, September 12, 2016, 14:32. INDICATIONS : Trauma to chest post fall today MEDICAL HISTORY : None. SURGICAL HISTORY : Pacemaker. ENCOUNTER: Initial ACUITY: 1 day PAIN SCORE: 0/10 LOCATION: Bilateral chest FINDINGS: Left subclavian pacer wires are present with tips in the right atrium and right ventricle. There is e vidence for prior median sternotomy. There is mild haziness to the lung jc bilaterally possibly m ild case of pulmonary edema. Focal consolidation is not seen. No definite pneumothorax is seen for [place]. Probable [place] bone island left proximal humerus has not changed. CONCLUSION: Probabl mild case of pulmonary edema. Glenn Hensley MD on September 12, 2016 at 19:33 Board Certified Radiologist. This report was verified electronically.
[2016-09-12] MEDS: INSULIN ASPART SUPPLEMENTAL SCALE SQ SCH (21:00)
[2016-09-13] VITALS (27 sets, daily range): BP systolic 95–105; BP diastolic 53–89; PULSE 69–80; RESP 20–22; TEMP 98–98.2; O2SAT 93–96
[2016-09-13 04:57] LABS: HEMATOCRIT 41.9 % (39.0-51.0); MEAN CORPUSCULAR HGB CONC 32.6 % (32.0-36.0); RED BLOOD COUNT 4.88 MIL/MM3 (4.50-5.90); RED CELL DISTRIBUTION WIDTH 16.1 % (11.6-17.2); WHITE BLOOD COUNT 7.3 TH/MM3 (4.0-11.0)
[2016-09-13 05:21] LABS: BICARBONATE 30.1 MEQ/L (21.0-32.0); POTASSIUM 4.1 MEQ/L (3.5-5.1)
[2016-09-13] MEDS: INSULIN ASPART SUPPLEMENTAL SCALE SQ SCH ×4 (05:25→21:00)
[2016-09-13] MEDS: LEVOTHYROXINE SODIUM 75 MCG TAB PO SCH (06:00)
[2016-09-13 06:04] LABS: REVIEW FLAG FINAL
[2016-09-13 06:05] LABS: PLATELET COUNT 67 TH/MM3 (150-450)
[2016-09-13] MEDS: glipiZIDE 10 MG TAB PO SCH ×2 (06:17→16:32)
[2016-09-13] MEDS: CEPHALEXIN MONOHYDRATE 500 MG CAP PO SCH ×3 (06:17→22:52)
[2016-09-13] MEDS: SODIUM CHLORIDE 0.9% FLUSH 5 ML FLUSH IVF SCH (08:43)
[2016-09-13] MEDS: ASPIRIN EC 81 MG TABEC PO SCH (08:43)
[2016-09-13] MEDS: BUMETANIDE 1 MG TAB PO SCH (08:43)
[2016-09-13] MEDS: LISINOPRIL 5 MG TAB PO SCH (08:44)
[2016-09-13] MEDS: PRAVASTATIN SOD 40 MG TAB PO SCH (08:44)
[2016-09-13] MEDS: CARVEDILOL 3.125 MG TAB PO SCH ×2 (08:45→22:52)
[2016-09-13] MEDS: NS 1000 ML IV SCH (14:30)
[2016-09-13] MEDS: LACTATED RINGER'S 1000 ML IV SCH (14:45)
--- NOTE | 2016-09-13 16:45 | HHI.PR ---
Subjective Subjective Remarks Up in chair Musculoskeletal soreness, post op AICD Appetite fair Family in room No shortness of breath at rest no fever (Ana Lilia Burt) Review of Systems Constitutional Constitutional: Weakness (generalized) Constitutional Remarks 10 point ROS done. Positives noted, are systems unremarkable or negative ( Ana Lilia Burt) Cardiology CV Remarks Clean incision line left upper chest status post AICD insertion (Ana Lilia Burt) Musculoskeletal MS: Swelling (1+ bilateral lower leg edema ,skin tight) (Ana Lilia Burt) Integumentary Skin: Wounds Skin Remarks Left upper chest ,clean incision line Small amount of bruising (Ana Lilia uBrt) Psychiatric Psychiatric: Normal Mood (Ana Lilia Burt) Vitals/Results Intake & Output 09/12/16 09/12/16 09/13/16 15:00 23:00 07:00 Intake Total 480 ml Output Total 400 ml Balance 80 ml Intake Oral 480 ml Output Urine Total 400 ml Vital Signs Vital Signs Date Time Temp Pulse Resp B/P Pulse Ox O2 Delivery O2 Flow Rate FiO2 09/13/16 14:00 69 09/13/16 13:00 69 09/13/16 12:00 69 09/13/16 12:00 98.1 69 20 95/53 96 09/13/16 11:00 69 09/13/16 10:00 69 09/13/16 09:00 69 09/13/16 08:19 93 Nasal Cannula 3.00 09/13/16 08:00 69 09/13/16 08:00 98.0 69 20 105/89 96 09/13/16 07:00 69 09/13/16 05:00 69 09/13/16 04:20 98.2 69 22 100/70 96 09/13/16 04:00 69 09/13/16 03:00 69 09/13/16 02:00 80 09/13/16 01:00 69 09/13/16 00:00 69 09/12/16 23:15 98.0 69 22 91/52 95 09/12/16 23:00 71 09/12/16 22:00 78 09/12/16 21:00 76 09/12/16 20:00 98.0 80 20 99/59 97 09/12/16 20:00 98.0 80 20 99/59 97 09/12/16 20:00 76 09/12/16 19:00 80 09/12/16 18:29 86 21 09/12/16 18:00 78 09/12/16 17:00 98.1 76 24 112/57 95 09/12/16 17:00 75 (Ana Lilia Burt) CBC/BMP: 09/13/16 0436 09/13/16 0436 Lab Results Laboratory Tests Test 09/13/16 04:36 White Blood Count 7.3 TH/MM3 Red Blood Count 4.88 MIL/MM3 Hemoglobin 13.7 GM/DL Hematocrit 41.9 % Mean Corpuscular Volume 86.0 FL Mean Corpuscular Hemoglobin 28.0 PG Mean Corpuscular Hemoglobin 32.6 % Concent Red Cell Distribution Width 16.1 % Platelet Count 67 TH/MM3 Mean Platelet Volume 12.7 FL Sodium Level 137 MEQ/L Potassium Level 4.1 MEQ/L Chloride Level 101 MEQ/L Carbon Dioxide Level 30.1 MEQ/L Anion Gap 6 MEQ/L Blood Urea Nitrogen 35 MG/DL Creatinine 1.60 MG/DL Estimat Glomerular Filtration 42 ML/MIN Rate Random Glucose 104 MG/DL Calcium Level 8.4 MG/DL Imaging Remarks Last Impressions Thoracentesis Ultrasound 09/12/16 0000 Signed Impressions: Service Date/Time: Monday, September 12, 2016 14:14 - CONCLUSION: Uncomplicated ultrasound guided RIGHT thoracentesis. Arvind Mclaughlin MD FACR Chest X-Ray 09/12/16 0000 Signed Impressions: Service Date/Time: Monday, September 12, 2016 18:30 - CONCLUSION: Probabl mild case of pulmonary edema. Glenn Hensley MD Current Medications Active Medications Dextrose (D50w (Vial) Inj) 25 ml UNSCH PRN IV PUSH; Start 09/12/16 at 17:45 Glucagon (Glucagon Inj) 1 mg UNSCH PRN OTHER; Start 09/12/16 at 17:45 (Ana Lilia Burt) Physical Exam General General Appearance: Well Developed (Ana Lilia Burt) Eyes Eye Exam: Pupils Equal, Sclera White (Javed,Ana Lilia M. ROOFING SALES REPRESENTATIVE) Ears & Nose Ears & Nose Exam: Nasal Mucosa Wells (Ana Lilia Burt. ROOFING SALES REPRESENTATIVE) Throat Throat Exam: Oral Mucosa Wells & Moist (Ana Lilia Burt. ROOFING SALES REPRESENTATIVE) Neck Neck Exam: Neck Supple (Ana Lilia Burt M. ROOFING SALES REPRESENTATIVE) Pulmonary Resp Exam: Crackles, Diminished Breath Sounds (Ana Lilia Burt M. ROOFING SALES REPRESENTATIVE) Cardiology CV Exam: Regular, Dyspnea on Exertion, Murmur CV Remarks Soft systolic murmur, grade 2/6 at the left sternal border (Ana Lilia Burt M. ROOFING SALES REPRESENTATIVE) Gastrointestinal/Abdomen GI Exam: Soft, Non-Tender, Bowel Sounds Present (Ana Lilia Burt M. ROOFING SALES REPRESENTATIVE) Hematologic/Lymphatic Heme Exam: Ecchymosis Heme Remarks Left upper chest around incision line (Ana Lilia Burt M. ROOFING SALES REPRESENTATIVE) Musculoskeletal MS Exam: Joints Intact (Ana Lilia Burt M. ROOFING SALES REPRESENTATIVE) Integumentary Skin Exam: Clear, Warm, Dry, Intact (Ana Lilia Burt M. ROOFING SALES REPRESENTATIVE) Extremeties Extremities Exam: Moderate Edema Extremeties Remarks 1+ bilateral (Ana Lilia Burt M. ROOFING SALES REPRESENTATIVE) Neurologic Neuro Exam: Alert, Awake, Speech Clear, Moving All Extremities (Ana Lilia Burt M. ROOFING SALES REPRESENTATIVE) VTE Prophylaxis VTE Prophylaxis Device: SCDs VTE Remarks ASA (Ana Lilia Burt. ROOFING SALES REPRESENTATIVE) Assessment/Plan Assessment/Plan Diagnosis: (1) SOB (shortness of breath) (2) CHF (congestive heart failure) (3) ICD (implantable cardioverter-defibrillator), biventricular, in situ (4) Pleural effusion (5) CAD (coronary artery disease) (6) Hyperlipidemia (7) Renal insufficiency (8) Hypertension (9) Diabetes 1.5, managed as type 2 Assessment and Plan medical management 80-year-old male with history of CAD, cardiomyopathy, EF 15%, status post biventricular AICD. Complaining of increasing shortness of breath, found with right pleural effusion -Status post right thoracentesis, 1 L removed Wean oxygen down to room air, keep sats greater than 92 -Pulmonology following patient Status post biventricular AICD for cardiomyopathy, EF 15% Monitor surgical site, opened air clean suture line dry and intact, Continue on postoperative antibiotics Continue postop care Renal insufficiency-unclear what patient's baseline is Monitor BMP, labs essentially unchanged, monitor Type 2 diabetes Will order Accu-Cheks before meals and at bedtime with insulin therapy Appetite good CAD, history of CABG Continue home medications Hypertension, stable Continue home medication Hyperlipidemia, stable Continue home medication No fever Monitor platelet count, 67 today. Pt on ASA Cardiology following, pending discharge, today versus a.m. This patient was seen by myself and Dr. Donaldson, this consultation is written on his behalf Discussed Condition with: Patient, Daughter (Ana Lilia Burt) Assessment/Plan seen, examined by myself, Dr Donaldson, today 09/13/16 Discussed with patient He denies complaints ICD site looks okay Edema both lower extremities left more than right Low platelets, follow Possible rehabilitation placement on Thursday We will follow Discussed with mid level provider The exam, history, and the medical decision-making described in the above note were completed with the assistance of the mid-level provider. I reviewed the findings presented. I attest that I had a [id number] encounter with the patient on the same day, and personally performed and documented my assessment and findings in the medical record. (Josselin Donaldson MD) Ana Lilia Burt Sep 13, 2016 16:45 Josselin Donaldson MD Sep 13, 2016 18:19
--- NOTE | 2016-09-13 17:24 | HHI.PR ---
Subjective Remarks 80 YOWM with CHF,CMP,S/p defib placement Has SOB CXR right pl effusion No CP Breathing much better Weaned to RA Objective Vital Signs Vital Signs Date Time Temp Pulse Resp B/P Pulse Ox O2 Delivery O2 Flow Rate FiO2 09/13/16 14:00 69 09/13/16 13:00 69 09/13/16 12:00 69 09/13/16 12:00 98.1 69 20 95/53 96 09/13/16 11:00 69 09/13/16 10:00 69 09/13/16 09:00 69 09/13/16 08:19 93 Nasal Cannula 3.00 09/13/16 08:00 69 09/13/16 08:00 98.0 69 20 105/89 96 09/13/16 07:00 69 09/13/16 05:00 69 09/13/16 04:20 98.2 69 22 100/70 96 09/13/16 04:00 69 09/13/16 03:00 69 09/13/16 02:00 80 09/13/16 01:00 69 09/13/16 00:00 69 09/12/16 23:15 98.0 69 22 91/52 95 09/12/16 23:00 71 09/12/16 22:00 78 09/12/16 21:00 76 09/12/16 20:00 98.0 80 20 99/59 97 09/12/16 20:00 98.0 80 20 99/59 97 09/12/16 20:00 76 09/12/16 19:00 80 09/12/16 18:29 86 21 09/12/16 18:00 78 I/O 09/12/16 09/12/16 09/12/16 09/13/16 09/13/16 09/13/16 07:00 15:00 23:00 07:00 15:00 23:00 Intake Total 480 ml 480 ml Output Total 600 ml 400 ml Balance -120 ml 80 ml Intake Oral 480 ml 480 ml Output Urine Total 600 ml 400 ml Result Diagram: 09/13/16 0436 09/13/16435 Objective Remarks GENERAL: WBWN WM with SOB SKIN: Warm and dry. HEAD: Normocephalic. EYES: No scleral icterus. No injection or drainage. NECK: Supple, trachea midline. No JVD or lymphadenopathy. CARDIOVASCULAR: Regular rate and rhythm without murmurs, gallops, or rubs. RESPIRATORY: Breath sounds equal bilaterally. No accessory muscle use. Decreased BS right GASTROINTESTINAL: Abdomen soft, non-tender, nondistended. MUSCULOSKELETAL: No cyanosis, or edema. BACK: Nontender without obvious deformity. No CVA tenderness. A/P Assessment and Plan Dysnoea Right pl effusion CHF CMP S/P Defib placement PLAN: Diurease Supplement [address] fluid transudate Rich Sy MD Sep 13, 2016 17:24
[2016-09-13] MEDS: FUROSEMIDE 20 MG TAB PO SCH (18:30)
[2016-09-14] VITALS (28 sets, daily range): BP systolic 90–134; BP diastolic 52–60; PULSE 69–76; RESP 17–22; TEMP 97.7–98.2; O2SAT 92–96
[2016-09-14] MEDS: CEPHALEXIN MONOHYDRATE 500 MG CAP PO SCH ×3 (06:17→22:30)
[2016-09-14] MEDS: INSULIN ASPART SUPPLEMENTAL SCALE SQ SCH ×4 (06:17→22:29)
[2016-09-14] MEDS: glipiZIDE 10 MG TAB PO SCH ×2 (06:17→14:50)
[2016-09-14] MEDS: SODIUM CHLORIDE 0.9% FLUSH 5 ML FLUSH IVF SCH ×3 (06:24→22:30)
[2016-09-14] MEDS: LEVOTHYROXINE SODIUM 75 MCG TAB PO SCH (06:24)
[2016-09-14 06:25] LABS: AUTOMATED NEUTROPHIL # 4.1 TH/MM3 (1.8-7.7); BASOPHIL # 0.1 TH/MM3 (0-0.2); BASOPHIL % 0.7 % (0.0-2.0); EOSINOPHIL # 0.5 TH/MM3 (0-0.4); EOSINOPHIL % 6.8 % (0.0-4.0); HEMATOCRIT 42.2 % (39.0-51.0); LYMPHOCYTE # 1.2 TH/MM3 (1.0-4.8); MEAN CELL VOLUME 85.6 FL (80.0-100.0); MEAN CORPUSCULAR HEMOGLOBIN 28.4 PG (27.0-34.0); MEAN CORPUSCULAR HGB CONC 33.2 % (32.0-36.0); MONO % 15.6 % (0.0-8.0); NEUT % 59.9 % (16.0-70.0); PLATELET COUNT 69 TH/MM3 (150-450); RED BLOOD COUNT 4.94 MIL/MM3 (4.50-5.90); RED CELL DISTRIBUTION WIDTH 16.5 % (11.6-17.2); WHITE BLOOD COUNT 6.8 TH/MM3 (4.0-11.0)
[2016-09-14 06:30] LABS: HEMO FLAGS AUTO DIFF
[2016-09-14 06:40] LABS: BICARBONATE 30.8 MEQ/L (21.0-32.0); POTASSIUM 4.4 MEQ/L (3.5-5.1)
--- NOTE | 2016-09-14 08:54 | MP ---
cc: DESIREE GRIFFIN M.D. DATE OF SURGERY: 09/10/2016 OPERATION: Biventricular pacer defibrillator insertion. INDICATION Mr. Chino is a 80-year-old gentleman with congestive heart failure, cardiomyopathy, coronary artery disease, previous coronary artery bypass grafting, ejection fraction 10-15%, QRS over 160 milliseconds, to undergo biventricular pacer defibrillator insertion for sudden prevention and resynchronization therapy. The gentleman is on optimal medical management. The risks, the nature and the benefit of the procedure are clearly stated to him. The risks include pneumothorax, cardiac perforation, stroke, need for open heart surgery and even . The patient understood and agreed to proceed. PROCEDURE As written informed consent was obtained prior to electrophysiology study, the patient was kept on the table where he was prepped and draped in the usual sterile fashion. Conscious sedation was initiated and maintained throughout the procedure by anesthesiologist. Once sedation was verified, the left infraclavicular area was anesthetized with 2% Xylocaine. Using modified Seldinger technique, the left subclavian vein was cannulated on two occasions, two guidewires were advanced. Using #11 blade scalpel, a 3-cm incision was made two fingerbreadth below the left clavicle. Dissection was then taken down to deep fascial layer using Bovie cautery and blunt dissection. Into the inferomedial direction, device pocket was dissected. Then the wire were dissected into the pocket. A 2-0 Vicryl suture was placed around the wires to prevent back bleeding. At this point I decided to proceed with ___ of the existing left ventricular epicardial lead. The muscular layer was subsequently dissected. And the lead was retrieved. After adequate pacing and sensing threshold were obtained, the leads were left into the pocket. At this point over the lateral wire, 9-[place]ine[place] dilator and introducer was advanced. As dilator and wire were removed, an active fixation right ventricular pacing sensing defibrillatory lead was advanced. After adequate pacing and sensing threshold were obtained, the lead was secured in the pocket using #2 Ethibond suture. Then over the remaining wire, a 7-[place] dilator and introducer was advanced. As the dilator and wire were removed, an active fixation right atrial pacing and sensing lead was advanced. After adequate pacing and sensing threshold were obtained, the lead was secured in the pocket using #2 Ethibond suture. At that point the pocket was copiously irrigated using antibiotic solution. The leads were connected to the generator and placed into the pocket. I did proceed with wound closure. The deep fascial layer was approximated using #2-0 Vicryl suture in a continuous fashion. The subcutaneous layer was approximated using #2-0 Vicryl suture in a continuous fashion. The subcuticular layer was approximated using #2-0 Vicryl suture in a continuous fashion. Dermabond adhesive was applied to the wound followed by sterile pressure dressing. There was no complication. The patient tolerated the procedure. Blood loss was minimal. 1. Implanted hardware. The implanted biventricular pacer defibrillator is a Biotronik, model number 060607, serial number [id number]. The right atrial pacing sensing lead is a Bi[employer]ronik model number 952538, serial number [id number]. The right ventricular pacing sensing defibrillatory lead is a [employer] model number 6947-65, serial number [id number]. The epicardial lead information is not available. 2. Threshold. The right atrial pacing threshold in bipolar mode was 1.1 volt at 0.5 milliseconds, lead impedance 585 ohms. P-wave at 3.6 mV. The right ventricular pacing threshold in bipolar mode was 0.8 volts at 0.5 milliseconds. Lead impedance 510 ohm. R-wave at 12.3 mV. The left ventricular pacing threshold in bipolar mode was 1.3 volts at 0.5 milliseconds. Lead impedance 304 ohms. The right ventricular defibrillatory threshold was not measured because of the patient's blood pressure and general medical condition. CONCLUSION Successful biventricular pacer defibrillator insertion. COMMENT AND RECOMMENDATION The patient is going to be transferred to the telemetry unit. Will be observed and when stable can be discharged home. MD JERI Mckeon/TUNG /5:46 PM /8:35 AM
[2016-09-14] MEDS: ASPIRIN EC 81 MG TABEC PO SCH (09:00)
[2016-09-14] MEDS: PRAVASTATIN SOD 40 MG TAB PO SCH (09:07)
[2016-09-14] MEDS: LISINOPRIL 5 MG TAB PO SCH (09:10)
[2016-09-14] MEDS: CARVEDILOL 3.125 MG TAB PO SCH ×2 (09:10→22:29)
[2016-09-14] MEDS: FUROSEMIDE 20 MG TAB PO SCH ×2 (09:11→22:30)
[2016-09-14 10:54] LABS: PLATELET ESTIMATE SMEAR LOW (NORMAL); PLATELET MORPHOLOGY ENLARGED (NORMAL); SCAN/DIFF AUTO DIFF CONFIRMED
[2016-09-14] MEDS: NS 1000 ML IV SCH (14:30)
[2016-09-14] MEDS: LACTATED RINGER'S 1000 ML IV SCH (14:45)
--- NOTE | 2016-09-14 16:04 | HHI.PR ---
Subjective Remarks 80 YOWM with CHF,CMP,S/p defib placement Has SOB No CP Breathing much better Desaturates on weaning 02 Objective Vital Signs Vital Signs Date Time Temp Pulse Resp B/P Pulse Ox O2 Delivery O2 Flow Rate FiO2 09/14/16 15:00 97.9 70 17 105/52 96 09/14/16 14:00 73 09/14/16 13:00 69 09/14/16 12:00 69 09/14/16 11:00 69 09/14/16 11:00 96 Nasal Cannula 1.00 09/14/16 11:00 98.1 69 18 105/59 95 09/14/16 10:00 69 09/14/16 10:00 88 Room Air 09/14/16 09:00 69 09/14/16 08:00 69 09/14/16 07:00 97.7 69 19 102/60 92 09/14/16 07:00 98 Nasal Cannula 3.00 09/14/16 07:00 69 09/14/16 06:00 69 09/14/16 05:00 69 09/14/16 04:00 69 09/14/16 04:00 98.2 69 22 111/56 96 09/14/16 03:00 72 09/14/16 02:00 69 09/14/16 01:00 69 09/14/16 00:10 98.2 70 22 90/53 96 09/14/16 00:00 69 09/13/16 23:00 69 09/13/16 22:00 73 09/13/16 21:00 75 09/13/16 20:19 96 Nasal Cannula 3.00 09/13/16 20:00 75 09/13/16 20:00 98.2 77 22 96/53 96 09/13/16 19:00 69 09/13/16 18:00 69 09/13/16 17:47 98.2 69 22 100/70 96 09/13/16 17:00 69 I/O 09/13/16 09/13/16 09/13/16 09/14/16 09/14/16 09/14/16 07:00 15:00 23:00 07:00 15:00 23:00 Intake Total 480 ml 960 ml 480 ml Output Total 400 ml 600 ml 550 ml Balance 80 ml 360 ml -70 ml Intake Oral 480 ml 960 ml 480 ml Output Urine Total 400 ml 600 ml 550 ml # Bowel Movements 0 Result Diagram: 09/14/1651409/14/16514 Objective Remarks GENERAL: WBWN WM with SOB SKIN: Warm and dry. HEAD: Normocephalic. EYES: No scleral icterus. No injection or drainage. NECK: Supple, trachea midline. No JVD or lymphadenopathy. CARDIOVASCULAR: Regular rate and rhythm without murmurs, gallops, or rubs. RESPIRATORY: Breath sounds equal bilaterally. No accessory muscle use. Decreased BS right GASTROINTESTINAL: Abdomen soft, non-tender, nondistended. MUSCULOSKELETAL: No cyanosis, or edema. BACK: Nontender without obvious deformity. No CVA tenderness. A/P Assessment and Plan Dysnoea Right pl effusion CHF CMP S/P Defib placement PLAN: Diurease Supplement [address] fluid transudate 02 walk test, may need home 02 Rich Sy MD Sep 14, 2016 16:04
--- NOTE | 2016-09-14 17:25 | HHI.PR ---
Subjective Subjective Remarks Up in chair today Musculoskeletal soreness, post op AICD Appetite fair, slow improvement Exertional dyspnea no fever No chest pain Review of Systems Constitutional Constitutional: Weakness (generalized) Constitutional Remarks 10 point ROS done. Positives noted, are systems unremarkable or negative Pulmonary Respiratory: Shortness of Breath (exertional) Cardiology CV Remarks Clean incision line left upper chest status post AICD insertion GI/Abdomen GI/Abdominal Exam: Positive Bowel Movement Hematologic/Lymphatic Heme/Lymph: Ecchymosis Heme/Lymph Remarks Left upper chest around incision line Musculoskeletal MS: Swelling (1+ bilateral lower leg edema ,skin tight) Integumentary Skin: Wounds Skin Remarks Left upper chest ,clean incision line Small amount of bruising Psychiatric Psychiatric: Normal Mood Vitals/Results Intake & Output 09/13/16 09/13/16 09/14/16 15:00 23:00 07:00 Intake Total 960 ml 480 ml Output Total 600 ml 550 ml Balance 360 ml -70 ml Intake Oral 960 ml 480 ml Output Urine Total 600 ml 550 ml # Bowel Movements 0 Vital Signs Vital Signs Date Time Temp Pulse Resp B/P Pulse Ox O2 Delivery O2 Flow Rate FiO2 09/14/16 16:00 69 09/14/16 15:00 97.9 70 17 105/52 96 09/14/16 15:00 69 09/14/16 14:00 73 09/14/16 13:00 69 09/14/16 12:00 69 09/14/16 11:00 69 09/14/16 11:00 96 Nasal Cannula 1.00 09/14/16 11:00 98.1 69 18 105/59 95 09/14/16 10:00 69 09/14/16 10:00 88 Room Air 09/14/16 09:00 69 09/14/16 08:00 69 09/14/16 07:00 97.7 69 19 102/60 92 09/14/16 07:00 98 Nasal Cannula 3.00 09/14/16 07:00 69 09/14/16 06:00 69 09/14/16 05:00 69 09/14/16 04:00 69 09/14/16 04:00 98.2 69 22 111/56 96 09/14/16 03:00 72 09/14/16 02:00 69 09/14/16 01:00 69 09/14/16 00:10 98.2 70 22 90/53 96 09/14/16 00:00 69 09/13/16 23:00 69 09/13/16 22:00 73 09/13/16 21:00 75 09/13/16 20:19 96 Nasal Cannula 3.00 09/13/16 20:00 75 09/13/16 20:00 98.2 77 22 96/53 96 09/13/16 19:00 69 09/13/16 18:00 69 09/13/16 17:47 98.2 69 22 100/70 96 CBC/BMP: 09/14/16 0515 09/14/16 0515 Lab Results Laboratory Tests Test 09/14/16 05:15 White Blood Count 6.8 TH/MM3 Red Blood Count 4.94 MIL/MM3 Hemoglobin 14.0 GM/DL Hematocrit 42.2 % Mean Corpuscular Volume 85.6 FL Mean Corpuscular Hemoglobin 28.4 PG Mean Corpuscular Hemoglobin 33.2 % Concent Red Cell Distribution Width 16.5 % Platelet Count 69 TH/MM3 Mean Platelet Volume 13.5 FL Neutrophils (%) (Auto) 59.9 % Lymphocytes (%) (Auto) 17.0 % Monocytes (%) (Auto) 15.6 % Eosinophils (%) (Auto) 6.8 % Basophils (%) (Auto) 0.7 % Neutrophils # (Auto) 4.1 TH/MM3 Lymphocytes # (Auto) 1.2 TH/MM3 Monocytes # (Auto) 1.1 TH/MM3 Eosinophils # (Auto) 0.5 TH/MM3 Basophils # (Auto) 0.1 TH/MM3 CBC Comment AUTO DIFF Differential Comment AUTO DIFF CONFIRMED Platelet Estimate LOW Platelet Morphology Comment ENLARGED Sodium Level 138 MEQ/L Potassium Level 4.4 MEQ/L Chloride Level 100 MEQ/L Carbon Dioxide Level 30.8 MEQ/L Anion Gap 7 MEQ/L Blood Urea Nitrogen 42 MG/DL Creatinine 1.63 MG/DL Estimat Glomerular Filtration 41 ML/MIN Rate Random Glucose 97 MG/DL Calcium Level 8.2 MG/DL Imaging Remarks Last Impressions Thoracentesis Ultrasound 09/12/16 0000 Signed Impressions: Service Date/Time: Monday, September 12, 2016 14:14 - CONCLUSION: Uncomplicated ultrasound guided RIGHT thoracentesis. Arvind Mclaughlin MD FACR Chest X-Ray 09/12/16 0000 Signed Impressions: Service Date/Time: Monday, September 12, 2016 18:30 - CONCLUSION: Probabl mild case of pulmonary edema. Glenn Hensley MD Current Medications Active Medications Furosemide (Lasix) 20 mg DAILY PO Last administered on 09/14/16t 09:11; Admin Dose 20 MG; Start 09/13/16 at 18:30 Physical Exam General General Appearance: Well Developed Eyes Eye Exam: Pupils Equal, Sclera White Ears & Nose Ears & Nose Exam: Nasal Mucosa [place] Throat Throat Exam: Oral Mucosa [place] & Moist Neck Neck Exam: Neck Supple Pulmonary Resp Exam: Crackles, Decreased Bases, Diminished Breath Sounds, Poor Inspiratory Effort Resp Remarks Exertional dyspnea Cardiology CV Exam: Regular, Dyspnea on Exertion, Murmur CV Remarks Soft systolic murmur, grade 2/6 at the left sternal border New AICD Gastrointestinal/Abdomen GI Exam: Soft, Non-Tender, Bowel Sounds Present Hematologic/Lymphatic Heme Exam: Ecchymosis Heme Remarks Left upper chest around incision line Musculoskeletal MS Exam: Joints Intact Integumentary Skin Exam: Clear, Warm, Dry, Intact Extremeties Extremities Exam: Moderate Edema Extremeties Remarks 1+ bilateral Neurologic Neuro Exam: Alert, Awake, Speech Clear, Moving All Extremities VTE Prophylaxis VTE Prophylaxis Device: SCDs VTE Remarks ASA Assessment/Plan Assessment/Plan Assessment/Plan Diagnosis: (1) SOB (shortness of breath) (2) CHF (congestive heart failure) (3) ICD (implantable cardioverter-defibrillator), biventricular, in situ (4) Pleural effusion (5) CAD (coronary artery disease) (6) Hyperlipidemia (7) Renal insufficiency (8) Hypertension (9) Diabetes 1.5, managed as type 2 Assessment and Plan medical management History 80-year-old male with history of CAD, cardiomyopathy, EF 15%, status post biventricular AICD. Complaining of increasing shortness of breath, found with right pleural effusion -Status post right thoracentesis, 1 L removed Wean oxygen down to room air, keep sats greater than 92 -Pulmonology following patient, continue with diuresis, check patient for walk test, I need home O2 Status post biventricular AICD for cardiomyopathy, EF 15% site clean Renal insufficiency- probable secondary to EF Monitor BMP, labs essentially unchanged, monitor Type 2 diabetes monitor blood sugar Appetite good CAD, medical management Hypertension, stable Continue home medication Hyperlipidemia, stable Continue home medication No fever Monitor platelet count, trending same, 69 Pt on ASA Cardiology following, AICD, This patient was seen by myself and Dr. Donaldson, this consultation is written on his behalf Ana Lilia Burt Sep 14, 2016 17:25
[2016-09-15] VITALS (17 sets, daily range): BP systolic 105–123; BP diastolic 53–57; PULSE 69–78; RESP 18–22; TEMP 97.7–98.2; O2SAT 95–97
[2016-09-15] MEDS: INSULIN ASPART SUPPLEMENTAL SCALE SQ SCH ×2 (05:49→12:01)
[2016-09-15] MEDS: CEPHALEXIN MONOHYDRATE 500 MG CAP PO SCH ×2 (05:49→13:29)
[2016-09-15] MEDS: LEVOTHYROXINE SODIUM 75 MCG TAB PO SCH (05:49)
[2016-09-15] MEDS ORDERED: glipiZIDE 10 MG TAB PO SCH (08:00)
[2016-09-15] MEDS: FUROSEMIDE 20 MG TAB PO SCH (08:42)
[2016-09-15] MEDS: LISINOPRIL 5 MG TAB PO SCH (08:42)
[2016-09-15] MEDS: CARVEDILOL 3.125 MG TAB PO SCH (08:42)
[2016-09-15] MEDS: PRAVASTATIN SOD 40 MG TAB PO SCH (08:42)
[2016-09-15] MEDS: ASPIRIN EC 81 MG TABEC PO SCH (08:43)
[2016-09-15] MEDS: SODIUM CHLORIDE 0.9% FLUSH 5 ML FLUSH IVF SCH (08:44)
--- NOTE | 2016-09-15 11:20 | HHI.PR ---
Subjective Interval History pt has no complaint he walks with oxygen failed walk test need oxygen 2 liters as per rn last week will get another walk test no other complaint ROS for 12 point system is unremarkable Vitals/Results Intake & Output 09/14/16 09/14/16 09/15/16 15:00 23:00 07:00 Intake Total 560 ml 240 ml Output Total 600 ml 350 ml Balance -40 ml -110 ml Intake Oral 560 ml 240 ml Output Urine Total 600 ml 350 ml # Voids 1 # Bowel Movements 1 Vital Signs Vital Signs Date Time Temp Pulse Resp B/P Pulse Ox O2 Delivery O2 Flow Rate FiO2 09/15/16 10:13 69 09/15/16 09:43 69 09/15/16 08:15 97.8 69 18 112/57 97 09/15/16 08:15 69 09/15/16 08:15 97 Room Air 2.00 09/15/16 07:50 95 Nasal Cannula 2.00 09/15/16 06:00 69 09/15/16 05:00 69 09/15/16 04:00 69 09/15/16 03:10 98.2 69 22 105/53 96 09/15/16 03:00 69 09/15/16 02:00 69 09/15/16 01:00 69 09/15/16 00:00 69 09/14/16 23:20 96 Nasal Cannula 1.00 09/14/16 23:20 98.2 69 22 105/57 96 09/14/16 23:00 71 09/14/16 22:00 69 09/14/16 21:49 94 Nasal Cannula 2.00 09/14/16 21:00 72 09/14/16 20:00 74 09/14/16 19:35 97.8 74 22 134/60 96 09/14/16 19:35 96 Nasal Cannula 1.00 09/14/16 19:00 76 09/14/16 18:00 69 09/14/16 17:00 70 09/14/16 16:00 69 09/14/16 15:00 97.9 70 17 105/52 96 09/14/16 15:00 69 09/14/16 14:00 73 09/14/16 13:00 69 09/14/16 12:00 69 CBC/BMP: 09/14/16 0515 09/14/16 0515 Physical Exam General General Appearance: Well Developed, No Acute Distress Eyes Eye Exam: Pupils Equal, Sclera White Ears & Nose Ears & Nose Exam: Nasal Mucosa [place] Throat Throat Exam: Oral Mucosa [place] & Moist Neck Neck Exam: Neck Supple, Trachea Midline Pulmonary Resp Exam: Breath Sounds Equal, No Distress, Diminished Breath Sounds Cardiology CV Exam: Regular, Good Perfusion, Dyspnea on Exertion, Murmur Gastrointestinal/Abdomen GI Exam: Soft, Non-Tender, Bowel Sounds Present Musculoskeletal MS Exam: Joints Intact, Normal Tone Integumentary Skin Exam: Clear, Warm, Dry Extremeties Extremeties Remarks trace dependent edoma Neurologic Neuro Exam: Alert, Awake, Speech Clear, Moving All Extremities VTE Prophylaxis VTE Prophylaxis Device: SCDs Assessment/Plan Assessment/Plan Assessment/Plan Diagnosis: (1) SOB (shortness of breath) (2) CHF (congestive heart failure) (3) ICD (implantable cardioverter-defibrillator), biventricular, in situ (4) Pleural effusion (5) CAD (coronary artery disease) (6) Hyperlipidemia (7) Renal insufficiency (8) Hypertension (9) Diabetes 1.5, managed as type 2 Assessment and Plan medical management History 80-year-old male with history of CAD, cardiomyopathy, EF 15%, status post biventricular AICD. Complaining of increasing shortness of breath, found with right pleural effusion -Status post right thoracentesis, 1 L removed Wean oxygen down to room air, keep sats greater than 92. 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 Donaldson, this consultation is written on his behalf Seven Oro MD Sep 15, 2016 11:20
[2016-09-15] MEDS ORDERED: CEPH500C PO (11:24)
[2016-09-15] MEDS ORDERED: ACET300T2 PO (11:24)
[2016-09-15] MEDS ORDERED: FURO20TA PO (11:24)
--- NOTE | 2016-09-15 11:27 | HHI.FF ---
Face to Face Verification Diagnosis: (1) CHF (congestive heart failure) (2) SOB (shortness of breath) (3) ICD (implantable cardioverter-defibrillator), biventricular, in situ (4) Pleural effusion (5) CAD (coronary artery disease) (6) Hyperlipidemia (7) Renal insufficiency (8) Hypertension (9) Diabetes 1.5, managed as type 2 Home Health Nursing Order: Medical education CHF education Wound care and dressing changes Nursing assessment with vital signs I have seen patient Scott Chino on 09/15/16. My clinical findings support the need for the requested home health care services because: Ltd mobility - disease progression I certify that my clinical findings support that this patient is homebound because: Poor cardiac reserve Seven Oro MD Sep 15, 2016 11:26
[2016-09-15] MEDS ORDERED: OXYGENTANK NAS.CANULA (11:28)
--- NOTE | 2016-09-15 11:32 | HHI.DS ---
Discharge Summary Admission Date Sep 11, 2016 at 17:43 Admitting Diagnosis (1) SOB (shortness of breath) Diagnosis: Principal (2) CHF (congestive heart failure) Diagnosis: Principal (3) ICD (implantable cardioverter-defibrillator), biventricular, in situ Diagnosis: Principal (4) Pleural effusion Diagnosis: Principal (5) CAD (coronary artery disease) Diagnosis: Principal (6) Hyperlipidemia Diagnosis: Principal (7) Renal insufficiency Diagnosis: Principal (8) Hypertension Diagnosis: Principal (9) Diabetes 1.5, managed as type 2 Diagnosis: Principal Brief History This a pleasant 80-year-old male with significant past medical history of cardiomyopathy, CAD, CABG, diabetes, hypertension, hyperlipidemia. Patient was admitted per Dr. Patiño on 09/10/2016 for EP study and placement of biventricular defibrillator. Patient has history of cardiomyopathy with CHF class III EF around 15%. Patient underwent placement of device, he tolerated well. After procedure, patient was short of breath, required 4 L of oxygen. Chest x-ray was done showing right pleural effusion. Patient underwent right thoracentesis and 1 L was removed. Patient indicates he is breathing better, no chest pain. Oxygen has been titrated down . Denies any chest pain, no palpitations. Pt was followed by cardiology after pacemaker insertion. as per cardiology can dc home. Pt was also followed by pulmonology and feeling better and breathing better after pl fluid tap. as pt is overall stable will dc home with home megan care to follow physicians as described below CBC/BMP: 09/14/16 0515 09/14/16 0515 Significant Findings Laboratory Tests Test 09/13/16 09/14/16 04:36 05:15 Platelet Count 67 TH/MM3 69 TH/MM3 (150-450) (150-450) Mean Platelet Volume 12.7 FL 13.5 FL (7.0-11.0) (7.0-11.0) Blood Urea Nitrogen 35 MG/DL (7-18) 42 MG/DL (7-18) Creatinine 1.60 MG/DL 1.63 MG/DL (0.60-1.30) (0.60-1.30) Estimat Glomerular Filtration 42 ML/MIN (>89) 41 ML/MIN (>89) Rate Calcium Level 8.4 MG/DL 8.2 MG/DL (8.5-10.1) (8.5-10.1) Monocytes (%) (Auto) 15.6 % (0.0-8.0) Eosinophils (%) (Auto) 6.8 % (0.0-4.0) Monocytes # (Auto) 1.1 TH/MM3 (0-0.9) Eosinophils # (Auto) 0.5 TH/MM3 (0-0.4) Platelet Estimate LOW (NORMAL) Platelet Morphology Comment ENLARGED (NORMAL) Pt Condition on Discharge: Good Discharge Disposition: Disch w/ Home Health Serv Discharge Instructions DIET: Follow Instructions for: Heart Healthy Diet, Diabetic Diet Activities you can perform: Weight Bearing as Leena Follow up Referrals: Cardiology - 1 Week PCP Follow-up - 3-5 Days Pulmonology - 2 Weeks New Medications: Oxygen tank (Oxygen tank) 1 Ea Tank 2 LITER SHADY.CANULA CONTINUOUS Oxygen Concentrator Portable Gaseous 2 L/min via Nasal Cannula Continuous For 99 months HYPOXEMIA PREVENTION #2 CYLINDER Acetaminophen-Codeine (Acetaminophen-Codeine) 300-30 mg Tab 1 TAB PO Q4H PRN PAIN SCALE 5 TO 10 #20 TAB Cephalexin (Cephalexin) 500 Mg Cap 500 MG PO Q8HR recent procedure #10 CAP Furosemide (Furosemide) 20 Mg Tab 20 MG PO BID water retention chf #60 TAB Continued Medications: Aspirin (Aspirin) 81 Mg Tabdr 81 MG PO DAILY TAB Bumetanide (Bumex) 0.5 Mg Tab 0.5 MG PO DAILY Ref 0 TAB Carvedilol (Coreg) 3.125 Mg Tab 3.125 MG PO BID #60 Ref 0 TAB Glipizide (Glipizide) 10 Mg Tab 10 MG PO BIDAC Take 30 minutes before a meal Blood Sugar Management #60 Ref 0 TAB Levothyroxine (Levothyroxine) 75 Mcg Tab 75 MCG PO DAILY Thyroid #30 Ref 0 TAB Lisinopril (Lisinopril) 2.5 Mg Tab 2.5 MG PO DAILY #30 Ref 0 TAB Lovastatin (Lovastatin) 40 Mg Tab 40 MG PO DAILY Cholesterol Management #30 Ref 0 TAB Sitagliptin (Januvia) 50 Mg Tab 50 MG PO DAILY Blood Sugar Management #30 Ref 0 TAB Seven Oro MD Sep 15, 2016 11:32
== END 2016-09-15 15:35 | disposition home or self-care (01) ==
LOC: HDOC 13:11 → HDIC 13:12 → HDOC 14:06 → UNDOADMOB 14:07 → HCPC 14:07 → HDOC 09-11 17:42 → HCPC 09-11 17:43
PROVIDERS: ADMIT Specialist; ATTEND Specialist
DX: I13.0 Hypertensive heart and chronic kidney disease with heart failure and stage 1 through stage 4 chronic kidney disease, or unspecified chronic kidney disease (principal); I50.23 Acute on chronic systolic (congestive) heart failure; N18.2 Chronic kidney disease, stage 2 (mild); I42.8 Other cardiomyopathies; I45.10 Unspecified right bundle-branch block; I44.0 Atrioventricular block, first degree; I25.2 Old myocardial infarction; I25.10 Atherosclerotic heart disease of native coronary artery without angina pectoris; E11.9 Type 2 diabetes mellitus without complications; J44.9 Chronic obstructive pulmonary disease, unspecified; J90 Pleural effusion, not elsewhere classified; R06.02 Shortness of breath; Z79.82 Long term (current) use of aspirin
CPT/HCPCS: 32555; 33249; 71010; 71020; 80048; 82945; 82948; 83615; 83735; 83880; 84100; 84157; 85025; 85027; 85610; 85730; 86850; 86900; 86901; 87070; 87205; 88112; 88305; 93005; 93620; 94620; C1729; C1730; C1779; C1882; C1895; G0378; J0690; J1815; J2250; J3370; J3475